=== PATIENT | female | born 1985 | race Hispanic/Latino ===

== ENCOUNTER 2017-04-27 18:26 | Inpatient (IN) | payer MEDICAID ==
[~2017-04-27] VITALS: Ht 152.4 cm; Wt 83.5 kg
[2017-04-27] MEDS ORDERED: LACTATED RINGERS 1000ML 1,000 ML IV PRN (18:31)
[2017-04-27 19:33] LABS: HEMATOCRIT 35.8 % (36-48); MEAN CORPUSCULAR HEMOGLOBIN 31.6 pg (27.0-33.0); MEAN CORPUSCULAR HGB CONC 35.2 g/dL (32.0-36.0); MEAN CORPUSCULAR VOLUME 89.9 fL (79-99); PLATELET COUNT (AUTO) 236 K/uL (130-400); RED BLOOD CELL COUNT(AUTO) 3.98 MIL/uL (4.00-5.50); RED CELL DISTRIBUTION WIDTH 13.3 % (11.0-15.5); WHITE BLOOD COUNT (AUTO) 14.8 K/uL (4.8-10.8)
[2017-04-27 19:45] VITALS: BP 120/60
[2017-04-27] MEDS: OXYTOCIN-LR 20 UNITS/1000 ML 1,000 ML IV SCH ×2 (20:30→22:54)
[2017-04-27 20:36] LABS: APPEARANCE,URINE Cloudy (CLEAR); BILIRUBIN,URINE Negative (NEGATIVE); COLOR,URINE Yellow (YELLOW); GLUCOSE, URINE (UA) Negative (NEGATIVE); KETONES,URINE Negative (NEGATIVE); LEUKOCYTE ESTERASE ,URINE Large (NEGATIVE); NITRATE,URINE Negative (NEGATIVE); OCCULT BLOOD,URINE Large (NEGATIVE); PH,URINE 6.5 (5.0-8.0); PROTEIN,URINE Negative (NEGATIVE); UROBILINOGEN,URINE 0.2 mg/dL (0.2-1.0)
[2017-04-27 21:08] LABS: BACTERIA,URINE Few /HPF (None Seen); WBC,URINE 26-50 /HPF (0-1)
[2017-04-27 21:09] LABS: TRICHOMONAS,URINE Few /LPF (None Seen)
[2017-04-27] MEDS ORDERED: BUTORPHANOL TARTRATE 1 MG/ML IVP ONE (22:00)
[2017-04-27] MEDS ORDERED: BUTORPHANOL TARTRATE 2 MG/ML ONE (22:02)
[2017-04-27] MEDS ORDERED: LACTATED RINGERS 1000ML 1,000 ML IV ONE (22:29)
[2017-04-27] MEDS ORDERED: OXYTOCIN 10 USP UNITS/ML ONE (22:29)
[2017-04-27] MEDS ORDERED: LIDOCAINE HCL 1% 20 ML VIAL ONE (22:31)
[2017-04-28] VITALS (7 sets, daily range): BP systolic 95–111; BP diastolic 58–74
[2017-04-28] MEDS ORDERED: OXYTOCIN 10 USP UNITS/ML ONE (00:10)
[2017-04-28] MEDS ORDERED: BENZOCAINE/LANOLIN/ALOE VERA 60 ML AEROSOL TP PRN (00:30)
[2017-04-28] MEDS ORDERED: ACETAMINOPHEN 325 MG TAB PO PRN (00:30)
[2017-04-28] MEDS ORDERED: ACETAMINOPHEN-CODEINE 300/30MG TAB PO PRN (00:30)
[2017-04-28] MEDS ORDERED: MEASLES/MUMPS/RUBELLA VACCINE, LIVE 0.5 ML/VIAL SQ PRN (00:30)
[2017-04-28] MEDS ORDERED: LANOLIN 30GM OINTMENT TP PRN (00:30)
[2017-04-28] MEDS ORDERED: WITCH HAZEL 1 PAD TP PRN (00:30)
[2017-04-28] MEDS ORDERED: DIPH,PERTUSS(ACELL),TET VAC/PF 0.5 ML VIAL IM PRN (00:30)
[2017-04-28] MEDS ORDERED: IBUPROFEN 600 MG TABLET ONE (00:36)
[2017-04-28] MEDS: IBUPROFEN 600 MG TABLET PO PRN ×3 (00:40→19:00)
[2017-04-28] MEDS: OXYTOCIN-LR 20 UNITS/1000 ML 1,000 ML IV SCH (01:00)
[2017-04-28] MEDS ORDERED: FLU VACC QS2017-18 36MOS UP/PF 60 MCG/0.5 ML ML IM ONE (02:00)
[2017-04-28] MEDS ORDERED: OXYTOCIN 10 USP UNITS/ML 20 UNIT in LACTATED RINGERS 1000ML 1,000 ML IV SCH (03:00)
[2017-04-28] MEDS ORDERED: PNV71COM PO (03:15)
[2017-04-28 05:28] LABS: MEAN CORPUSCULAR HEMOGLOBIN 31.8 pg (27.0-33.0); MEAN CORPUSCULAR HGB CONC 35.5 g/dL (32.0-36.0); MEAN CORPUSCULAR VOLUME 89.7 fL (79-99); PLATELET COUNT (AUTO) 225 K/uL (130-400); RED CELL DISTRIBUTION WIDTH 13.8 % (11.0-15.5); WHITE BLOOD COUNT (AUTO) 19.5 K/uL (4.8-10.8)
[2017-04-28] MEDS ORDERED: FLU VACC QS2017-18 36MOS UP/PF 60 MCG/0.5 ML ML IM SCH (08:30)
[2017-04-28] MEDS: DOCUSATE SODIUM 100 MG CAP PO SCH ×2 (09:23→20:42)
[2017-04-29 03:02] VITALS: BP 101/59
[2017-04-29] MEDS: IBUPROFEN 600 MG TABLET PO PRN ×2 (03:11→08:47)
[2017-04-29 07:35] VITALS: BP 102/68
[2017-04-29] MEDS: DOCUSATE SODIUM 100 MG CAP PO SCH (08:47)
[2017-04-29 11:27] VITALS: BP 99/63
[2017-04-29 12:18] LABS: HEPATITIS Bs ANTIGEN SCREEN P Negative (Negative)
== END 2017-04-29 13:40 | disposition home or self-care (01) | DRG 560 ==
LOC: LDH 18:26 → WSH 04-28 02:28
PROVIDERS: ADMIT Obstetrics & Gynecology; ATTEND Obstetrics & Gynecology
PROC: 10E0XZZ Delivery of Products of Conception, External Approach (ICD-10-PCS; 2017-04-27)
PROC: 10907ZC Drainage of Amniotic Fluid, Therapeutic from Products of Conception, Via Natural or Artificial Opening (ICD-10-PCS; 2017-04-27)
PROC: 0HQ9XZZ Repair Perineum Skin, External Approach (ICD-10-PCS; 2017-04-27)
PROC: 3E0234Z Introduction of Serum, Toxoid and Vaccine into Muscle, Percutaneous Approach (ICD-10-PCS; principal; 2017-04-28)
PROC: 3E0334Z Introduction of Serum, Toxoid and Vaccine into Peripheral Vein, Percutaneous Approach (ICD-10-PCS; 2017-04-28)
DX: O70.0 First degree perineal laceration during delivery (principal); Z23 Encounter for immunization; Z37.0 Single live birth; Z3A.38 38 weeks gestation of pregnancy
CPT/HCPCS: 36415; 81001; 85027; 86592; 86850; 86900; 86901; 87340; J0595; J2590; J7120; Q2038